=== PATIENT | female | born 1990 | race Asian ===

== ENCOUNTER 2018-11-09 10:26 | Inpatient (IN) | payer BC ==
[2018-11-09] MEDS ORDERED: Ondansetron PF 4 MG/2 ML Vial IVP PRN ×3 (10:53→21:49)
[2018-11-09] MEDS ORDERED: Promethazine HCl 25 MG/ML VIAL IM PRN ×2 (10:53→17:18)
[2018-11-09] MEDS ORDERED: Ibuprofen 800 MG TAB PO PRN (10:53)
[2018-11-09] MEDS ORDERED: Docusate 100 MG CAP PO PRN (10:53)
[2018-11-09] MEDS ORDERED: NS / Oxytocin 40 units/1000ml 1,000 ML IV PRN (10:53)
[2018-11-09] MEDS ORDERED: Acetaminophen/Codeine 30-300mg Tablet PO PRN ×3 (10:53→21:49)
[2018-11-09] MEDS ORDERED: Zolpidem Tartrate 5 MG TAB PO PRN ×2 (10:53→21:49)
[2018-11-09] MEDS ORDERED: Meperidine HCl/PF 25 MG/ML VIAL IM/IV PRN (10:53)
[2018-11-09] MEDS ORDERED: Acetaminophen 500 MG TAB PO PRN (10:53)
[2018-11-09] MEDS ORDERED: Lidocaine 1% (PF) 30 ML VIAL SC PRN (10:53)
[2018-11-09] MEDS ORDERED: Butorphanol Tartrate 1 MG/ML VIAL SLOW IVP PRN (10:53)
[2018-11-09] MEDS ORDERED: NS w/ Oxytocin 10 units 500 ML IV SCH (11:00)
[2018-11-09] MEDS: Lactated Ringer's 1,000 ML IV SCH ×2 (11:30→13:30)
[2018-11-09 11:57] VITALS: BMI 25.6
[2018-11-09 12:01] LABS: Hemoglobin 11.5 g/dL (12.0-16.0); Mean Corpuscular HGB CONC 34.4 g/dL (32.0-36.0); Mean Corpuscular Hemoglobin 32.8 pg (27.0-31.0); Mean Corpuscular Volume 95.5 fL (78.0-98.0); Platelet Count 234 thou/uL (130-400); RBC Distribution Width 11.7 % (11.5-14.5); Red Blood Cell (RBC) Count 3.52 mill/uL (4.20-5.40); White Blood Cell (WBC) Count 10.4 thou/uL (4.8-10.8)
[2018-11-09] MEDS ORDERED: NS w/ Oxytocin 10 units 500 ML ONE (12:05)
[2018-11-09 12:34] LABS: Syphilis Antibody Nonreactive (Nonreactive); Syphilis Antibody Index 0.09 S/CO (<1.00 Non-Reactive)
[2018-11-09] MEDS ORDERED: Fentanyl 4 mcg/Bup 0.1% Cadd 100 ML ONE ×2 (13:10→19:34)
[2018-11-09 15:04] LABS: HBSAg Index 0.21 S/CO (0-0.99); Hep B Surf Ag Non-Reactive S/CO (NonReactive)
[2018-11-09] MEDS ORDERED: diphenhydrAMINE 50 MG/ML VIAL IVP PRN (17:18)
[2018-11-09] MEDS ORDERED: Acetaminophen 325 MG TAB PO PRN (17:18)
[2018-11-09] MEDS ORDERED: Naloxone HCl 0.4 mg/ml Vial IVP PRN ×2 (17:18)
[2018-11-09] MEDS ORDERED: Lactated Ringer's 500 ML IV PRN (17:18)
[2018-11-09] MEDS ORDERED: ePHEDrine/0.9% NaCl/PF SYRINGE 50 mg/10 ml SLOW IVP PRN (17:18)
[2018-11-09] MEDS ORDERED: Eucerin (Mineral Oil/Petrolatum,White) 30 gm Jar TOP PRN (17:18)
[2018-11-09] MEDS ORDERED: Fentanyl 4 mcg/Bupivacaine 0.1% Cassette 100 ML EPIDURAL SCH (17:30)
[2018-11-09] MEDS ORDERED: Communication Order-Pharmacy FS SCH (17:30)
[2018-11-09] MEDS ORDERED: Ampicillin 2 GM in Sodium Chloride 0.9% 100 ML IVPB SCH (19:45)
[2018-11-09] MEDS ORDERED: Lidocaine 1% (PF) 30 ML VIAL ONE (20:27)
[2018-11-09] MEDS ORDERED: NS / Oxytocin 40 units/1000ml 1,000 ML ONE (20:27)
[2018-11-09] MEDS ORDERED: Misoprostol 200 MCG TAB VAG PRN (21:49)
[2018-11-09] MEDS ORDERED: Bisacodyl 10 MG SUPP PR PRN (21:49)
[2018-11-09] MEDS ORDERED: Milk Of Magnesia 30 ML UDCUP PO PRN (21:49)
[2018-11-09] MEDS ORDERED: diphenhydrAMINE 25 MG CAP PO PRN (21:49)
[2018-11-09] MEDS ORDERED: Preparation H Ointment 28 GM TUBE PR PRN (21:49)
[2018-11-09] MEDS ORDERED: Lanolin Ointment 7 GM TUBE TOP PRN (21:49)
[2018-11-09] MEDS ORDERED: Benzocaine/Menthol 20-0.5% 60 ML CAN TOP PRN (21:49)
[2018-11-09] MEDS ORDERED: NS / Oxytocin 40 units/1000ml 1,000 ML IV SCH (22:00)
[2018-11-09] MEDS: Ibuprofen 800 MG TAB PO SCH (22:26)
[2018-11-09] MEDS: Ampicillin/Sulbactam 3 GM in Sodium Chloride 0.9% 100 ML IVPB SCH (23:18)
[2018-11-10] MEDS: Ampicillin/Sulbactam 3 GM in Sodium Chloride 0.9% 100 ML IVPB SCH ×2 (06:12→12:28)
[2018-11-10] MEDS: Ibuprofen 800 MG TAB PO SCH ×3 (06:16→21:48)
[2018-11-10] MEDS: Lactated Ringer's 1,000 ML IV SCH ×2 (06:31→15:42)
[2018-11-10 08:43] LABS: Hemoglobin 9.7 g/dL (12.0-16.0); Mean Corpuscular HGB CONC 34.5 g/dL (32.0-36.0); Mean Corpuscular Hemoglobin 33.6 pg (27.0-31.0); Mean Corpuscular Volume 97.4 fL (78.0-98.0); Mean Platelet Volume 8.1 fL (7.4-10.4); Platelet Count 188 thou/uL (130-400); Red Blood Cell (RBC) Count 2.88 mill/uL (4.20-5.40); White Blood Cell (WBC) Count 15.8 thou/uL (4.8-10.8)
[2018-11-10] MEDS ORDERED: Adacel (T-DAP) 0.5 ML SYRINGE IM ONE (09:00)
[2018-11-10] MEDS: Ferrous Sulfate 325 MG TAB PO SCH ×2 (09:38→18:27)
[2018-11-10] MEDS: Acetaminophen/Codeine 30-300mg Tablet PO PRN ×2 (09:38→14:58)
[2018-11-10] MEDS: Prenatal Vitamin 1 TAB PO SCH (09:38)
[2018-11-10] MEDS: Docusate Calcium (SURFAK) 240 MG CAP PO SCH ×2 (09:39→21:48)
[2018-11-10] MEDS ORDERED: Lidocaine 2% MPF 10 ML AMP (For Epidural Use) ONE (11:11)
[2018-11-11] MEDS: Ibuprofen 800 MG TAB PO SCH ×2 (06:30→14:26)
[2018-11-11] MEDS: Ferrous Sulfate 325 MG TAB PO SCH (08:50)
[2018-11-11] MEDS: Docusate Calcium (SURFAK) 240 MG CAP PO SCH (08:51)
[2018-11-11] MEDS: Prenatal Vitamin 1 TAB PO SCH (08:51)
[2018-11-11 12:09] VITALS: BP 111/67; TEMP 98.2
== END 2018-11-11 15:43 | disposition home or self-care (01) | DRG 807 ==
LOC: L&D 10:26 → 3SE 11-10 18:25
PROVIDERS: ADMIT Obstetrics & Gynecology; ATTEND Obstetrics & Gynecology
PROC: 10D07Z6 Extraction of Products of Conception, Vacuum, Via Natural or Artificial Opening (ICD-10-PCS; principal; 2018-11-09)
PROC: 0W8NXZZ Division of Female Perineum, External Approach (ICD-10-PCS; 2018-11-09)
DX: O80 Encounter for full-term uncomplicated delivery (principal); Z37.0 Single live birth; Z3A.39 39 weeks gestation of pregnancy
CPT/HCPCS: 36415; 51702; 85027; 86780; 86850; 86900; 86901; 87340; J0290; J0295; J0595; J2001; J7050